=== PATIENT | male | born 1960 | race Caucasian/White ===

== ENCOUNTER → 2021-08-25 09:14 | Outpatient (CLI) | payer OTHER, SELFPAY ==
[2021-08-25 10:55] LABS: COVID19 -Nasal RAPID Negative (Negative)
== END ==
PROVIDERS: PCP Family Medicine; Referring Provider Specialist; Visit Provider Specialist
DX: Z01.812 Encounter for preprocedural laboratory examination (principal); Z20.822 Contact with and (suspected) exposure to COVID-19
CPT/HCPCS: 87635; C9803

== ENCOUNTER 2021-08-26 09:04 | Day surgery (SDC) | payer OTHER, SELFPAY ==
[2021-08-26 09:21] VITALS: BP 155/101; PULSE 99; RESP 14; TEMP 36.5; O2SAT 99; BMI 28.8
--- NOTE | 2021-08-26 10:50 | P.HP_ITS ---
History of Present Illness History of Present Illness Chief complaint: SCREENING COLONOSCOPY Narrative: The patient is a gentleman who had a colonoscopy 3 years ago in the [place] area. He was advised at that time to have a repeat colonoscopy in 3 years due to the findings. He had a polyp removed from his cecum and 1 from his rectum at that time. Patient History Medical History BPH (benign prostatic hyperplasia) Hyperlipidemia Plantar fasciitis Preventative health care Seborrheic keratosis Family & Social History Social History: household members spouse Tobacco & Substance use: Smoking Status Never smoker alcohol intake current alcohol intake frequency a few times a week Substance Use Type does not use Meds Home Medications and Allergies Home Medications Medication Instructions Recorded Confirmed Type atorvastatin 20 mg tablet 20 mg PO BEDTIME #90 tab 11/30/20 08/26/21 Rx tamsulosin 0.4 mg capsule 0.4 mg PO BEDTIME #90 cap 11/30/20 08/26/21 Rx betamethasone dipropionate 0.05 % 1 applic TOPICAL BID PRN #60 ml 05/17/21 05/17/21 Rx lotion myntmrxp-xmrugwvij-zhnecxdpz 3.5 3 drp OTIC (EAR) TID #10 ml 05/17/21 05/17/21 Rx mg-10,000 unit/mL-1 % ear drops,susp Allergies Allergy/AdvReac Type Severity Reaction Status Date / Time No Known Drug Allergies Allergy Verified 08/26/21 09:17 Review of Systems Review of Systems Narrative: Essentially healthy except for an enlarged prostate. No cardiopulmonary GI or neurosymptoms otherwise. Exam Vital Signs (past 8 hours): - 08/26/21 09:21 Temperature 97.7 F Pulse Rate 99 H Respiratory Rate 14 Blood Pressure 155/101 H Pulse Oximetry 99 Oxygen Delivery Method Room Air Narrative Exam Narrative: Pleasant cooperative patient no apparent distress. Lungs are clear to auscultation. No rales or rhonchi. Heart regular rate and rhythm no murmur gallop. Abdomen is soft nontender without mass. No obvious hernias. Patient is alert and oriented x3. Assessment & Plan Assessment and plan (1) Screening for colon cancer: Status: Acute (2) Personal history of colonic polyps: Status: Acute Assessment & Plan narrative: Patient here for colonoscopy. I have discussed the procedure and the rationale with the patient including risks of bleeding, perforation which would necessitate a major operation, failure to find remove all lesions and the potential to tattoo. He appeared to understand and wished to proceed. Time Spent With Patient Critical Care time: I spent a total of [] minutes of critical care time on this patient's care today; this time is exclusive of procedural time.
--- NOTE | 2021-08-26 10:53 | PM.PREOP ---
Pre-operative Note COVID-19 COVID-19 status: Negative Result date/Date tested (Pos, Neg/Pending): 08/25/21 Interval Note History & Physical reviewed/Exam performed by Physician: Yes Changes to H&P: No ASA Class (for procedural sedation): I
[2021-08-26] MEDS: MIDAZOLAM 5 MG/5 ML VIAL IV (11:22)
[2021-08-26] MEDS: fentaNYL 250 MCG/5 ML INJ IV (11:22)
[2021-08-26 11:23] VITALS: BP 148/94; PULSE 78; RESP 14; TEMP 36.6; O2SAT 94
--- NOTE | 2021-08-26 11:26 | PM.OP.COLON ---
Operative Date/Time/Diagnoses Date of procedure: 08/26/21 Time of procedure: 11:26 Pre-op diagnosis: Personal history of polyps. Last exam 3 years ago. 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 Post-op diagnosis: same Procedure & Clinicians Study performed: Colonoscopy Same procedure as scheduled: Yes Indications: Screening in high risk group Surgeon: Jose Wheeler Procedure Notes SCOAP/Timeout: Performed Procedure in detail: The patient was placed in the left lateral decubitus position and underwent IV sedation directed by the surgeon consisting of fentanyl and Versed. Digital exam was remarkable for an enlarged prostate. No palpable masses in it however. The scope was inserted and advanced through the rectum into the sigmoid, descending, transverse, and ascending colon. Pressure was applied the stiffener inserted. The cecum was reached identified by the ileocecal valve and the appendiceal opening. The scope was gradually brought out. No Polyps were found. The scope ultimately was retroflexed in the rectum. The appearance was normal. The scope was removed and the patient tolerated the procedure well. Prep was very good. Scope withdrawal time: 8 minutes Sedation minutes: 23 Specimen(s): none sent Complications: none Impression: Normal exam Post-procedure Recommendations: Colonoscopy in 5 years (Due to a history of tubular adenomatous polyps) Follow up: as needed Disposition: PACU
[2021-08-26 11:28] VITALS: BP 136/87; PULSE 83; RESP 10; O2SAT 96
[2021-08-26 11:33] VITALS: BP 150/91; PULSE 78; RESP 12; O2SAT 95
[2021-08-26 11:40] VITALS: BP 129/89; PULSE 72; RESP 12; O2SAT 95
--- NOTE | 2021-08-26 11:48 | SUR.PHASEII ---
Pt given discharge instructions . Pt states he understands discharge instructions. Pt denies pain and nausea. Pt to be discharged with .
== END 2021-08-26 11:53 | disposition home or self-care (01) ==
PROVIDERS: PCP Family Medicine; Referring Provider Specialist; Visit Provider Specialist
PROC: 0DJD8ZZ Inspection of Lower Intestinal Tract, Via Natural or Artificial Opening Endoscopic (ICD-10-PCS; CPT 45378; principal; 2021-08-26 10:00)
DX: Z12.11 Encounter for screening for malignant neoplasm of colon (principal); Z86.010 Personal history of colon polyps
CPT/HCPCS: 45378; 99152; J2250; J3010

== ENCOUNTER → 2021-12-01 07:54 | Outpatient (CLI) | payer OTHER, SELFPAY ==
[2021-12-01 08:41] LABS: Add Manual Diff / Slide Review NO; Basophils Absolute Auto 100 /uL (0-100); Basophils Percent Auto 1.1 % (0-2); Eosinophils Absolute Auto 100 /uL (0-450); Eosinophils Percent Auto 2.8 % (2-4); Hematocrit 44.3 % (41-53); Hemoglobin 15.1 g/dL (13.5-17.5); Lymphocytes Absolute Auto 1400 /uL (1100-4500); Lymphocytes Percent Auto 28.5 % (25-40); Mean Corpuscular HGB Conc 34.1 % (30-36); Mean Corpuscular Hemoglobin 30.6 PG (26-34); Mean Corpuscular Volume 89.9 fL (80-100); Monocytes Absolute Auto 500 /uL (0-900); Monocytes Percent Auto 10.5 % (3-14); Neutrophils Absolute Auto 2800 /uL (1500-7000); Neutrophils Percent Auto 57.1 % (50-75); Platelet Count 341 X10^3/uL (150-400); Red Blood Cell Count 4.93 X10^6/uL (4.5-5.9); Red Cell Distribution Width 12.7 % (11.6-14.8)
[2021-12-01 08:57] LABS: Alanine Aminotransferase 25 IU/L (<50); Albumin 4.1 g/dL (3.5-5.0); Albumin Globulin Ratio 1.3 (1.0-2.8); Alkaline Phosphatase 49 U/L (38-126); Aspartate Aminotransferase 26 IU/L (17-59); BUN Creatinine Ratio 12.5 (6-22); Bilirubin Total 0.8 mg/dL (0.2-1.3); Blood Urea Nitrogen 13 mg/dL (9-20); Calcium 9.4 mg/dL (8.4-10.2); Carbon Dioxide 27 mmol/L (22-32); Chloride 109 mmol/L (98-107); Cholesterol 150 mg/dL (140-199); Estimated Glomerular Filt Rate > 60.0 mL/min (>60); Globulin 3.1 g/dL (1.7-4.1); Glucose 93 mg/dL (80-110); HDL Cholesterol 49 mg/dL (40-60); HEMOLYSIS < 15 (0-50); LDL Cholesterol Calculated 87 mg/dL (<100); Sodium 141 mmol/L (137-145); Total Protein 7.2 g/dL (6.3-8.2); Triglycerides 70 mg/dL (35-150)
[2021-12-01 09:25] LABS: Prostate Specific Antigen 2.83 ng/mL (0.10-4.00)
== END ==
PROVIDERS: PCP Family Medicine; Referring Provider Family Medicine; Visit Provider Family Medicine
DX: E78.5 Hyperlipidemia, unspecified (principal); N40.0 Benign prostatic hyperplasia without lower urinary tract symptoms; Z00.00 Encounter for general adult medical examination without abnormal findings
CPT/HCPCS: 36415; 80053; 80061; 84153; 85025

== ENCOUNTER → 2022-08-18 11:47 | Outpatient (CLI) | payer OTHER, SELFPAY ==
--- NOTE | 2022-08-18 | DI.MRI.S_ITS ---
PROCEDURE: MR SHOULDER LT WO CON INDICATIONS: Pain in left shoulder TECHNIQUE: Noncontrast oblique coronal T2 fast spin echo with fat saturation, oblique sagittal T1 spin echo and T2 fast spin echo with fat saturation, axial T1 spin echo and T2 fast spin echo with fat saturation through the shoulder. COMPARISON: [facility] [place], CR, XR SHOULDER 2+ VIEWS LEFT, 05/29/2022, 8:38. FINDINGS: Image quality: Excellent. Rotator cuff: There is moderate grade partial intrasubstance tearing of the supraspinatus tendon at the anterior footprint without definite extension to the articular or bursal surface. There is mild supraspinatus and infraspinatus tendinosis. The teres minor and subscapularis tendons are intact. There is no significant rotator cuff muscle atrophy. Bones and bursae: Mild nonspecific osseous edema is seen within the anterior humeral head just medial to the subscapularis insertion, which could represent a small osseous erosion. Chronic traction cystic changes are seen in the posterosuperior humeral head. Partial-thickness cartilage loss is seen at the superomedial humeral head and the posterior glenoid including focal full-thickness cartilage loss. Moderate degenerative changes are seen in the acromioclavicular joint with subchondral edema and subchondral cystic changes as well as small marginal osteophytes. There is a trace amount of subacromial/subdeltoid bursal fluid. A small glenohumeral effusion is present. Capsule and soft tissues: There is nondisplaced tearing of the superior labrum extending into the posterosuperior and likely the anterosuperior labrum. The proximal biceps long head tendon is intact. There is mild partial effacement of the normal fat signal in the rotator interval. Glenohumeral ligaments are grossly intact. IMPRESSION: 1. Moderate grade partial intrasubstance tearing of the supraspinatus tendon at the anterior footprint superimposed on mild supraspinatus and infraspinatus tendinosis. 2. Nondisplaced tearing of the superior labrum extending into the posterosuperior and anterosuperior labrum. 3. Small area of focal osseous edema is seen in the anterior humeral head, which could represent a small osseous erosion or contusion. Multifocal grade 3-4 chondromalacia in the glenohumeral joint. Small glenohumeral effusion. 4. Moderate degenerative changes are seen in the acromioclavicular joint with subchondral edema and marginal osteophyte formation. 5. Trace subacromial/subdeltoid bursal effusion. Approved by: Per Lindsey M.D. on 08/18/2022 at 13:45
== END ==
PROVIDERS: PCP Family Medicine; Referring Provider Orthopaedic Surgery; Visit Provider Orthopaedic Surgery
DX: M75.112 Incomplete rotator cuff tear or rupture of left shoulder, not specified as traumatic (principal); S43.492A Other sprain of left shoulder joint, initial encounter; M94.212 Chondromalacia, left shoulder; M25.412 Effusion, left shoulder; M25.512 Pain in left shoulder
CPT/HCPCS: 73221

== ENCOUNTER → 2022-11-24 07:00 | Outpatient (CLI) | payer OTHER, SELFPAY ==
[2022-11-24 08:05] LABS: Add Manual Diff / Slide Review NO; Basophils Absolute Auto 0 /uL (0-100); Basophils Percent Auto 0.5 % (0-2); Eosinophils Absolute Auto 200 /uL (0-450); Eosinophils Percent Auto 2.5 % (2-4); Hematocrit 43.8 % (41-53); Hemoglobin 14.9 g/dL (13.5-17.5); Lymphocytes Absolute Auto 1500 /uL (1100-4500); Lymphocytes Percent Auto 22.9 % (25-40); Mean Corpuscular HGB Conc 34.1 % (30-36); Mean Corpuscular Hemoglobin 30.9 PG (26-34); Mean Corpuscular Volume 90.8 fL (80-100); Monocytes Absolute Auto 600 /uL (0-900); Monocytes Percent Auto 9.7 % (3-14); Neutrophils Absolute Auto 4100 /uL (1500-7000); Neutrophils Percent Auto 64.4 % (50-75); Platelet Count 286 X10^3/uL (150-400); Red Blood Cell Count 4.83 X10^6/uL (4.5-5.9); Red Cell Distribution Width 12.5 % (11.6-14.8); White Blood Cell Count 6.4 X10^3/uL (4.5-11.0)
[2022-11-24 08:36] LABS: Alanine Aminotransferase 28 IU/L (<50); Albumin Globulin Ratio 1.3 (1.0-2.8); Alkaline Phosphatase 48 U/L (38-126); Aspartate Aminotransferase 25 IU/L (17-59); BUN Creatinine Ratio 15.2 (6-22); Blood Urea Nitrogen 14 mg/dL (9-20); Carbon Dioxide 26 mmol/L (22-32); Chloride 106 mmol/L (98-107); Cholesterol 133 mg/dL (140-199); Estimated Glomerular Filt Rate > 60 mL/min (>60); Globulin 3.1 g/dL (1.7-4.1); Glucose 88 mg/dL (80-110); HDL Cholesterol 43 mg/dL (40-60); HEMOLYSIS < 15 (0-50); LDL Cholesterol Calculated 72 mg/dL (<100); Potassium 4.6 mmol/L (3.4-5.1); Sodium 141 mmol/L (137-145); Total Protein 7.1 g/dL (6.3-8.2); Triglycerides 88 mg/dL (35-150)
[2022-11-24 09:05] LABS: Prostate Specific Antigen Scrn 2.34 ng/mL (0.1-4.0)
== END ==
PROVIDERS: PCP Family Medicine; Referring Provider Family Medicine; Visit Provider Family Medicine
DX: E78.2 Mixed hyperlipidemia (principal); N40.0 Benign prostatic hyperplasia without lower urinary tract symptoms; Z13.9 Encounter for screening, unspecified; Z12.5 Encounter for screening for malignant neoplasm of prostate
CPT/HCPCS: 36415; 80053; 80061; 85025; G0103

== ENCOUNTER → 2023-11-26 07:05 | Outpatient (CLI) | payer OTHER, SELFPAY ==
[2023-11-26 08:34] LABS: Alanine Aminotransferase 29 IU/L (<50); Albumin Globulin Ratio 1.3 (1.0-2.8); Alkaline Phosphatase 46 U/L (38-126); Aspartate Aminotransferase 29 IU/L (17-59); BUN Creatinine Ratio 14.6 (6-22); Bilirubin Total 1.1 mg/dL (0.2-1.3); Blood Urea Nitrogen 14 mg/dL (9-20); Calcium 9.5 mg/dL (8.4-10.2); Carbon Dioxide 26 mmol/L (22-32); Chloride 107 mmol/L (98-107); Cholesterol 137 mg/dL (140-199); Estimated Glomerular Filt Rate > 60 mL/min (>60); Glucose 95 mg/dL (80-110); HDL Cholesterol 46 mg/dL (40-60); HEMOLYSIS < 15 (0-50); LDL Cholesterol Calculated 75 mg/dL (<100); Potassium 4.6 mmol/L (3.4-5.1); Sodium 138 mmol/L (137-145); Triglycerides 79 mg/dL (35-150)
[2023-11-26 09:01] LABS: Prostate Specific Antigen 2.28 ng/mL (0.10-4.00)
== END ==
PROVIDERS: PCP Family Medicine; Referring Provider Family Medicine; Visit Provider Family Medicine
DX: Z00.00 Encounter for general adult medical examination without abnormal findings (principal); E78.2 Mixed hyperlipidemia; N40.0 Benign prostatic hyperplasia without lower urinary tract symptoms
CPT/HCPCS: 36415; 80053; 80061; 84153

== ENCOUNTER → 2024-11-20 07:00 | Outpatient (CLI) | payer OTHER, SELFPAY ==
[2024-11-20 10:07] LABS: Alanine Aminotransferase 37 IU/L (<50); Albumin 4.3 g/dL (3.5-5.0); Albumin Globulin Ratio 1.6 (1.0-2.8); Alkaline Phosphatase 46 U/L (38-126); Aspartate Aminotransferase 40 IU/L (17-59); BUN Creatinine Ratio 14.7 (6-22); Bilirubin Total 1.2 mg/dL (0.2-1.3); Blood Urea Nitrogen 15 mg/dL (9-20); Carbon Dioxide 23 mmol/L (22-32); Chloride 108 mmol/L (98-107); Estimated Glomerular Filt Rate > 60 mL/min (>60); Globulin 2.7 g/dL (1.7-4.1); Glucose 88 mg/dL (80-110); HEMOLYSIS < 15 (0-50); Sodium 139 mmol/L (137-145)
[2024-11-20 10:31] LABS: Prostate Specific Antigen 2.21 ng/mL (0.10-4.00)
== END ==
PROVIDERS: PCP Family Medicine; Referring Provider Family Medicine; Visit Provider Family Medicine
DX: Z00.00 Encounter for general adult medical examination without abnormal findings (principal); E78.5 Hyperlipidemia, unspecified; N40.0 Benign prostatic hyperplasia without lower urinary tract symptoms
CPT/HCPCS: 36415; 80053; 84153

== ENCOUNTER 2025-08-27 08:10 | Day surgery (SDC) | payer OTHER, SELFPAY ==
--- NOTE | 2025-08-27 06:53 | PM.HP.IH.1 ---
History of Present Illness History of Present Illness Date Patient Seen: 08/27/25 Time Patient Seen: 06:53 Chief complaint: [facility] [place] Narrative: Patient presents for colonoscopy today. , 5yr f/u for tubular adenomas. [facility] Medical History Multiple nevi Encounter for well adult exam without abnormal findings Preventative health care Seborrheic keratosis Plantar fasciitis BPH (benign prostatic hyperplasia) Hyperlipidemia Surgical History H/O inguinal hernia repair History of hand surgery Social History household members: spouse alcohol intake: current Meds Home Medications and Allergies Home Medications ?Medication ?Instructions ?Recorded ?Confirmed ?Type betamethasone dipropionate 0.05 % 1 applic topical BID PRN skin 12/01/22 05/05/25 Rx lotion irritation #60 mL atorvastatin 20 mg tablet See Rx Instructions .Route 12/17/24 05/05/25 Rx .COMPLEX #90 tabs tamsulosin 0.4 mg capsule See Rx Instructions .Route 12/26/24 05/05/25 Rx .COMPLEX #180 caps tlfjseaj-snepabive-wxjjigiam 3.5 3 drp EAR-RIGHT TID #10 mL 05/05/25 05/05/25 Rx mg-10,000 unit/mL-1 % ear drops,susp sodium,potassium,mag sulfates 17.5 See Rx Instructions PO .COMPLEX 05/11/25 Rx gram-3.13 gram-1.6 gram oral soln #354 mL (Suprep Bowel Prep Kit) Allergies Allergy/AdvReac Type Severity Reaction Status Date / Time No Known Drug Allergies Allergy Verified 05/05/25 10:02 Exam Narrative Exam Narrative: Const General: comfortable Orientation: alert and oriented x3 Resp Effort & Inspection: normal respiratory effort and able to speak in complete sentences Cardio Rate: regular rate GI Palpation: soft (NT) Extrem General: no pedal edema and no calf tenderness Assessment & Plan Assessment and plan (1) Encounter for screening colonoscopy: Status: Acute Plan Plan screening colonoscopy, possible biopsy. The risks, benefits and options regarding the procedure were explained to the patient in detail. Risk discussion included but not limited to: bleeding, perforation, missed lesion, unable to reach cecum. The patient was encouraged to ask questions and they were answered to their satisfaction. The patient understands and is agreeable to proceed. Time-Based Coding :: [TOTAL MINUTES] spent with patient and on the chart (including review of chart, obtaining history, exam, reviewing outside data, placing orders, documenting exam and treatment plan, and counseling patient) on [DATE]. [employer]EE Loop [employer]acker Document charge(s): Yes Charge Codes Inpatient/observation care including admit and discharge same day: [id number]
[2025-08-27 08:27] VITALS: BP 144/89; PULSE 85; RESP 16; TEMP 36.2; O2SAT 97
[2025-08-27] MEDS: LACTATED RINGERS 1,000 ML 42 ML IV (08:39)
--- NOTE | 2025-08-27 09:05 | PM.OP.COLON ---
Operative Date/Time/Diagnoses Date of procedure: 08/27/25 Time of procedure: 09:25 Pre-op diagnosis: Screening colonoscopy Post-op diagnosis: same Procedure & Clinicians Study performed: Colonoscopy Same procedure(s) as scheduled: Yes Indications: H/O colon polyps Surgeon: Morgan Moreno Anesthesia Type: MAC +/- Procedure Notes SCOAP/Timeout: Performed Procedure in detail: Colonoscopy Patient placed in left lateral recumbent position. Time out was performed. Procedural sedation was administered by anesthesia. Examination began with a thorough inspection of the perianal area. There was no evidence of fissures, fistulae, external hemorrhoids or cutaneous malignancy. The colonoscope was then placed into the rectum and the lumen was insufflated with carbon dioxide. The scope was carefully advanced forward. Ultimately the cecum was intubated and confirmed by identification of the ileocecal valve, the appendiceal orifice and the confluence of the taenia. The scope was then slowly withdrawn examining the colon thoroughly in all directions. In the rectum, retroflexion of the scope was performed for inspection of the distal rectum and anal canal. ?Significant colonoscopy findings: ?1. Quality of the preparation-good, [place] 2-3, improved with irrigation/suction ?2. No polyps, normal screening colonoscopy today. Scope withdrawal time: 6 minutes Estimated Blood Loss: 5 Complications: none Impression: Normal screening colonoscopy Post-procedure Recommendations: Colonoscopy in 10 years Plan for aftercare: PACU then home Follow up: as needed Disposition: PACU
[2025-08-27 09:23] VITALS: BP 118/69; PULSE 91; RESP 15; TEMP 36.5; O2SAT 93
[2025-08-27 09:28] VITALS: BP 114/68; PULSE 91; RESP 16; TEMP 36.5; O2SAT 95
== END 2025-08-27 09:42 | disposition home or self-care (01) ==
PROVIDERS: PCP Family Medicine; Referring Provider Family Medicine; Visit Provider Surgery
PROC: 0DJD8ZZ Inspection of Lower Intestinal Tract, Via Natural or Artificial Opening Endoscopic (ICD-10-PCS; CPT 45378; principal; 2025-08-27 09:15)
DX: Z12.11 Encounter for screening for malignant neoplasm of colon (principal); Z86.0100 Personal history of colon polyps, unspecified
CPT/HCPCS: 45378; J2250; J2704; J7120